=== PATIENT | female | born 1940 | race Caucasian/White ===

== ENCOUNTER 2018-10-20 18:39 | Inpatient (IN) | payer MEDICARE ==
[2018-10-20] MEDS ORDERED: SALINE 1 500ML.BAG with HEPARIN SODIUM,PORCINE/NS/PF 1,000 UNIT IV ONE (21:12)
[2018-10-20] MEDS ORDERED: HEPARIN SODIUM,PORCINE 5,000 UNIT/ML 1 ML VIAL IV PRN (21:17)
[2018-10-20] MEDS ORDERED: HEPARIN SODIUM,PORCINE 5,000 UNIT/ML 1 ML VIAL IV ONE (21:17)
[2018-10-20] MEDS ORDERED: NITROGLYCERIN OINT 1 INCH/GM PACKET TOPICAL PRN (21:21)
[2018-10-20] MEDS ORDERED: ACETAMINOPHEN TAB 325 MG TAB PO PRN (21:21)
[2018-10-20] MEDS ORDERED: HEPARIN SOD,PORK IN 0.45% NACL 25,000 UNIT in 0.45% NACL 1 250ML.BAG IV SCH (21:30)
[2018-10-20 22:28] LABS: Basophils # (A) 0.1 k/uL (0-0.2); Basophils % (A) 1 %; Eosinophils # (A) 0.1 k/uL (0-0.7); Eosinophils % (A) 1 %; HCT 34.5 % (34.0-46.0); HGB 11.5 gm/dL (11.4-16.0); Lymphocytes # (A) 1.2 k/uL (1.0-4.8); Lymphocytes % (A) 19 %; MCH 29.5 pg (25.0-35.0); MCHC 33.4 g/dL (31.0-37.0); MCV 88.4 fL (80.0-100.0); Mean Platelet Volume 7.2; Monocytes # (A) 0.5 k/uL (0-1.0); Monocytes % (A) 8 %; Neutrophils # (A) 4.4 k/uL (1.3-7.7); Neutrophils % (A) 69 %; Platelet Count 161 k/uL (150-450); RDW 13.6 % (11.5-15.5); WBC 6.4 k/uL (3.8-10.6)
[2018-10-20 22:34] LABS: INR 1.2 (<1.2); Partial Thromboplastin Time 28.5 sec (22.0-30.0); Prothrombin Time 12.5 sec (9.0-12.0)
[2018-10-20] MEDS: SODIUM CHLORIDE 0.9% 1,000 ML IV SCH (23:12)
[2018-10-21 01:10] VITALS: BMI 22.2
[2018-10-21 06:25] LABS: Glucose,Whole Blood 241 mg/dL (75-99)
[2018-10-21 06:51] LABS: Basophils % (A) 1 %; Eosinophils # (A) 0.1 k/uL (0-0.7); Eosinophils % (A) 1 %; HCT 36.6 % (34.0-46.0); HGB 12.2 gm/dL (11.4-16.0); Lymphocytes # (A) 0.9 k/uL (1.0-4.8); Lymphocytes % (A) 14 %; MCH 29.1 pg (25.0-35.0); MCHC 33.4 g/dL (31.0-37.0); MCV 87.1 fL (80.0-100.0); Mean Platelet Volume 7.4; Monocytes # (A) 0.3 k/uL (0-1.0); Monocytes % (A) 5 %; Neutrophils % (A) 78 %; Platelet Count 143 k/uL (150-450); RDW 14.2 % (11.5-15.5); WBC 6.4 k/uL (3.8-10.6)
[2018-10-21 07:05] LABS: Anion Gap 10 mmol/L; Blood Urea Nitrogen 10 mg/dL (7-17); Calcium 9.5 mg/dL (8.4-10.2); Carbon Dioxide 24 mmol/L (22-30); Chloride 108 mmol/L (98-107); Cholesterol 152 mg/dL (<200); Glucose 230 mg/dL (74-99); HDL Cholesterol 54 mg/dL (40-60); LDL Cholesterol,Calculated 57 mg/dL (0-99); Potassium 3.7 mmol/L (3.5-5.1); Sodium 142 mmol/L (137-145); Triglycerides 207 mg/dL (<150)
[2018-10-21] MEDS: INSULIN ASPART (NovoLOG) 100 UNIT/ML VIAL SQ SCH ×4 (07:21→20:27)
[2018-10-21] MEDS ORDERED: traMADol 50 MG TAB PO PRN (08:27)
[2018-10-21] MEDS ORDERED: ALPRAZolam 0.25 MG TAB PO PRN ×2 (08:27→10:09)
--- NOTE | 2018-10-21 08:43 | P.HPIM ---
History of Present Illness This is a pleasant 78 years old female with past medical history of coronary artery disease status post CABG, sick sinus syndrome status post pacemaker, paroxysmal atrial fibrillation on anticoagulation, mechanical valve replacement, diabetes mellitus, hypertension, hyperlipidemia, rheumatoid arthritis, cardiac valve replacement, she is a patient of Dr. KAY Arana. Was transferred from [facility], as per transfer papers patient presented to the hospital for vomiting and generalized abdominal pain and burning sensation that goes behind her sternum into her throat. With no diarrhea. No dizziness or lightheadedness. However patient reports with chest pain which is better controlled now. She has history of mitral valve replacements with mechanical valve, she is on Coumadin currently. Labs at [facility] showing hemoglobin 12.2, platelets 186 , WBC elevated at 15.2 INR 1.8, creatinine 0.8, AST 21, ALT 16. Glucose 133, sodium 138, potassium 4.0, and 16, bilirubin 0.7, troponin is 0.18. Urine analysis showing WBC of 6-10. Lactic acid elevated at 3.2. Coming down to 1.8. Radiology report of the abdominal and chest x-ray showing no acute process as per radiology report. CT abdomen and pelvis with contrast showing clearing of the right pleural effusion compared to old exam. No acute abnormality in the abdomen and pelvis. Mild colonic diverticulosis without diverticulitis. At [facility] patient was started on heparin drip, as well as Plavix and nitroglycerin Review of Systems CONSTITUTIONAL: No fever, no malaise, no fatigue. HEENT: No recent visual problems or hearing problems. Denied any sore throat. CARDIOVASCULAR: No orthopnea, PND, no palpitations, no syncope. PULMONARY: No shortness of breath, no cough, no hemoptysis. GASTROINTESTINAL: No diarrhea, no nausea, no vomiting, no abdominal pain. Normoactive bowel sounds. NEUROLOGICAL: No headaches, no weakness, no numbness. HEMATOLOGICAL: Denies any bleeding or petechiae. GENITOURINARY: Denies any burning micturition, frequency, or urgency. MUSCULOSKELETAL/RHEUMATOLOGICAL: Denies any joint pain, swelling, or any muscle pain. ENDOCRINE: Denies any polyuria or polydipsia. Past Medical History Past Medical History: Atrial Fibrillation, Coronary Artery Disease (CAD), Chest Pain / Angina, Heart Failure, Diabetes Mellitus, Eye Disorder, GERD/Reflux, Hyperlipidemia, Hypertension, Myocardial Infarction ([place]), Rheumatoid Arthritis ([place]) Last Myocardial Infarction Date:: UNKNOWN History of Any Multi-Drug Resistant Organisms: None Reported Past Surgical History: Adenoidectomy, Appendectomy, Cardiac Valve Replacement, Cholecystectomy, Coronary Bypass/CABG, Heart Catheterization, Pacemaker, Tonsillectomy Additional Past Surgical History / Comment(s): MITRAL VALVE REPAIR Past Anesthesia/Blood Transfusion Reactions: No Reported Reaction Type of Cardiac Device: Permanent Pacemaker Device Placement Date:: UNKNOWN Past Psychological History: Anxiety, Depression, Panic Disorder Additional Psychological History / Comment(s): PT. STATES SHE TAKES PROZAC FOR HER DEPRESSION Smoking Status: Never smoker Past Drug Use History: None Reported - Past Family History Father Family Medical History: Cancer Mother Family Medical History: Coronary Artery Disease (CAD), Myocardial Infarction ([place]) Medications and Allergies Home Medications Medication Instructions Recorded Confirmed Type ALPRAZolam [Xanax] 0.25 mg PO DAILY 10/20/18 10/20/18 History Atorvastatin Calcium [Lipitor] 20 mg PO DAILY 10/20/18 10/20/18 History Cetirizine HCl [Zyrtec] 10 mg PO DAILY 10/20/18 10/20/18 History Donepezil [Aricept] 10 mg PO DAILY 10/20/18 10/20/18 History Ergocalciferol [Vitamin D2 50,000 units PO DAILY 10/20/18 10/20/18 History (DRISDOL)] Esomeprazole Magnesium [NexIUM] 20 mg PO DAILY 10/20/18 10/20/18 History FLUoxetine HCL [PROzac] 10 mg PO DAILY 10/20/18 10/20/18 History Furosemide [Lasix] 40 mg PO DAILY 10/20/18 10/20/18 History Insulin Detemir [Levemir Flextouch] 42 units SQ HS 10/20/18 10/20/18 History Isosorbide Mononitrate [Isosorbide 30 mg PO DAILY 10/20/18 10/20/18 History Mononitrate ER] Lisinopril [Zestril] 2.5 mg PO DAILY 10/20/18 10/20/18 History Loratadine [Claritin] 10 mg PO DAILY 10/20/18 10/20/18 History Metoprolol Tartrate 25 mg PO BID 10/20/18 10/20/18 History Potassium Chloride [K-Tab ER] 10 meq PO DAILY 10/20/18 10/20/18 History Warfarin Sodium [Coumadin] 4 mg PO DAILY 10/20/18 10/20/18 History lamoTRIgine 100 mg PO DAILY 10/20/18 10/20/18 History metFORMIN HCL [Glucophage] 500 mg PO BID 10/20/18 10/20/18 History traMADol HCL [Ultram] 50 mg PO Q6HR PRN 10/20/18 10/20/18 History Allergies Allergy/AdvReac Type Severity Reaction Status Date / Time bee venom protein (honey bee) Allergy Anaphylaxis Verified 10/20/18 21:50 bismuth subsalicylate Allergy Unknown Verified 10/20/18 21:02 [From Pepto-Bismol] erythromycin base Allergy Unknown Verified 10/20/18 21:51 garrison Allergy Diarrhea Verified 10/20/18 21:59 Penicillins Allergy Unknown Verified 10/20/18 21:01 Sulfa (Sulfonamide Allergy Unknown Verified 10/20/18 21:02 Antibiotics) aspirin AdvReac Unknown Verified 10/20/18 21:52 Physical Exam Vitals: Vital Signs Temp Pulse Resp BP Pulse Ox 10/21/18 04:10 98.1 F 79 17 148/68 94 L 10/21/18 00:00 98.2 F 72 19 152/56 93 L 10/20/18 21:05 73 17 10/20/18 20:59 98.2 F 73 17 137/74 96 Intake and Output 10/20/18 10/21/18 10/21/18 22:59 06:59 14:59 Intake Total 53.765 Balance 53.765 Intake: Intake, IV Titration 53.765 Amount Heparin Sod,Pork in 0.45% 53.765 NaCl 25,000 unit In 0.45 % NaCl 1 250ml.bag @ 12 UNITS/KG/HR 6.624 mls/hr IV .Q24H [facility] Rx#: [id number] Other: Voiding Method Toilet Toilet # Voids 1 1 # Bowel Movements 1 Weight 55.2 kg 54.5 kg GENERAL: The patient is alert and oriented x3, not in any acute distress. Well developed, well nourished. HEENT: Pupils are round and equally reacting to light. EOMI. No scleral icterus. No conjunctival pallor. Normocephalic, atraumatic. No pharyngeal erythema. No thyromegaly. CARDIOVASCULAR: S1 and S2 present. No murmurs, rubs, or gallops. PULMONARY: Chest is clear to auscultation, no wheezing or crackles. ABDOMEN: Soft, nontender, nondistended, normoactive bowel sounds. No palpable organomegaly. MUSCULOSKELETAL: No joint swelling or deformity. EXTREMITIES: No cyanosis, clubbing, or pedal edema. NEUROLOGICAL: Gross neurological examination did not reveal any focal deficits. SKIN: No rashes. Results CBC & Chem 7: 10/21/18 06:00 10/21/18 06:00 Labs: Abnormal Lab Results - Last 24 Hours (Table) 10/20/18 10/20/18 10/21/18 Range/Units 22:03 22:03 03:43 Plt Count (150-450) k/uL Lymphocytes # (1.0-4.8) k/uL PT 12.5 H (9.0-12.0) sec INR 1.2 H (<1.2) APTT (22.0-30.0) sec Chloride (98-107) mmol/L Glucose (74-99) mg/dL POC Glucose (mg/dL) (75-99) mg/dL Troponin I 0.828 H* 0.590 H* (0.000-0.034) ng/mL Triglycerides (<150) mg/dL 10/21/18 10/21/18 10/21/18 Range/Units 06:00 06:00 06:00 Plt Count 143 L (150-450) k/uL Lymphocytes # 0.9 L (1.0-4.8) k/uL PT (9.0-12.0) sec INR (<1.2) APTT 39.7 H (22.0-30.0) sec Chloride 108 H (98-107) mmol/L Glucose 230 H (74-99) mg/dL POC Glucose (mg/dL) (75-99) mg/dL Troponin I (0.000-0.034) ng/mL Triglycerides 207 H (<150) mg/dL 10/21/18 Range/Units 06:24 Plt Count (150-450) k/uL Lymphocytes # (1.0-4.8) k/uL PT (9.0-12.0) sec INR (<1.2) APTT (22.0-30.0) sec Chloride (98-107) mmol/L Glucose (74-99) mg/dL POC Glucose (mg/dL) 241 H (75-99) mg/dL Troponin I (0.000-0.034) ng/mL Triglycerides (<150) mg/dL Thrombosis Risk Factor Assmnt - Choose All That Apply Any of the Below Risk Factors Present?: No Other Risk Factors: Yes Each Risk Factor Represents 3 Points: Age 75 years or older Other congenital or acquired thrombophilia - If yes, enter type in comment: No Thrombosis Risk Factor Assessment Total Risk Factor Score: 3 Thrombosis Risk Factor Assessment Level: Moderate Risk Assessment and Plan Assessment: Chest pain with mildly elevated troponin, rule out cardiac causes. Mostly non STEMI Mild gastroenteritis with nausea vomiting. History of coronary artery disease, status post CABG Paroxysmal atrial fibrillation, on Coumadin. Rate controlled History of valve replacements with mechanical valve. On Coumadin History of sick sinus syndrome, status post pacemaker Diabetes mellitus Hypertension Hyperlipidemia Rheumatoid arthritis Plan: This is a pleasant 78 years old female who presents because of chest pain. Follow-up troponins. Cardiology consult. Continue with aspirin.get records. Labs and medication were reviewed.. Continue same treatment. Continue with symptomatic treatment. Resume home medication. Monitor lytes and vitals. DVT and GI prophylaxis. Further recommendations of the clinical course of the patient DVT prophylaxis: heparin GI Prophylaxis: Pepcid Prognosis is guarded
[2018-10-21] MEDS: POTASSIUM CHLORIDE ER 10 MEQ TAB.ER.PRT PO SCH (08:57)
[2018-10-21] MEDS: LORATADINE 10 MG TAB PO SCH (08:57)
[2018-10-21] MEDS: METOPROLOL TARTRATE 25 MG TAB PO SCH ×2 (08:57→20:27)
[2018-10-21] MEDS: FAMOTIDINE 20 MG/2 ML VIAL IV SCH ×2 (08:57→20:27)
[2018-10-21] MEDS: LISINOPRIL 2.5 MG TAB PO SCH (08:57)
[2018-10-21] MEDS: FUROSEMIDE 40 MG TAB PO SCH (08:57)
[2018-10-21] MEDS: lamoTRIgine 100 MG TAB PO SCH (08:57)
[2018-10-21] MEDS: ATORVASTATIN 80 MG TAB PO SCH (08:57)
[2018-10-21] MEDS ORDERED: ASPIRIN 325 MG TAB PO SCH (09:00)
[2018-10-21] MEDS ORDERED: metFORMIN 500 MG TAB PO SCH (09:00)
[2018-10-21] MEDS ORDERED: NON-FORMULARY DRUG (Warfarin Sodium [Coumadin] 4 MG) PO SCH (09:00)
[2018-10-21] MEDS: FLUoxetine HCL 10 MG CAP PO SCH (09:02)
[2018-10-21] MEDS ORDERED: NITROGLYCERIN SL TABS 0.4 MG TAB SUBLINGUAL PRN (10:09)
[2018-10-21] MEDS ORDERED: SODIUM CHLORIDE 0.9% 1,000 ML in EMPTY BAG 1 BAG IV ONE (10:09)
[2018-10-21] MEDS ORDERED: ASPIRIN 325 MG TAB PO STA (10:09)
[2018-10-21] MEDS ORDERED: ATORVASTATIN 80 MG TAB PO STA (10:09)
[2018-10-21] MEDS ORDERED: ALPRAZolam 0.5 MG TAB PO PRN (10:09)
[2018-10-21] MEDS ORDERED: LIDOCAINE 1% INJ 10MG/ML (20 ML MDV) ONE (10:27)
--- NOTE | 2018-10-21 10:56 | ECHOF ---
Referral Reason:assess lvf MEASUREMENTS -------- HEIGHT: 157.5 cm WEIGHT: 54.4 kg BP: RVIDd: 1.9 cm (< 3.3) IVSd: 1.5 cm (0.6 - 1.1) LVIDd: 3.6 cm (3.9 - 5.3) LVPWd: 1.6 cm (0.6 - 1.1) IVSs: 2.0 cm LVIDs: 2.9 cm LVPWs: 2.7 cm LAESV Index (A-L): 63.61 ml/m Ao Diam: 3.0 cm (2.0 - 3.7) AV Cusp: 1.8 cm (1.5 - 2.6) LA Diam: 3.5 cm (2.7 - 3.8) MV E Jass: 1.38 m/s MV DecT: 191 ms MV A Jass: 0.83 m/s MV E/A Ratio: 1.66 AR PHT: 165 ms RAP: 5.00 mmHg RVSP: 43.10 mmHg FINDINGS -------- Sinus rhythm. This was a technically good study. The left ventricular size is normal. There is moderate concentric left ventricular hypertrophy. O verall left ventricular systolic function is mild-moderately impaired with, an EF between 40 - 45 %. Mid to basal inferiorlateral is hypokinetic The right ventricle is normal in size. LA is severely dilated >40 ml/m2 The right atrial size is normal. Interatrial and interventricular septum intact. Aortic valve is trileaflet and is mildly thickened. Trace amount of aortic regurgitation. The peak and mean MV gradients are 9.01mmHg 4.16mmHg as measured by doppler. Normally functioning b ioprosthetic mitral valve. Mild tricuspid regurgitation present. There is mild pulmonary hypertension. The right ventricular systolic pressure, as measured by Doppler, is 43.10mmHg. Trace/mild (physiologic) pulmonic regurgitation. The thrombus is located in the apical portion of the left ventricle. The aortic root size is normal. Normal inferior vena cava with normal inspiratory collapse consistent with estimated right atrial pre ssure of 5 mmHg. There is no pericardial effusion. CONCLUSIONS -------- 1. Sinus rhythm. 2. This was a technically good study. 3. The left ventricular size is normal. 4. There is moderate concentric left ventricular hypertrophy. 5. Overall left ventricular systolic function is mild-moderately impaired with, an EF between 40 - 45 %. 6. Mid to basal inferiorlateral is hypokinetic 7. The right ventricle is normal in size. 8. LA is severely dilated >40 ml/m2 9. The right atrial size is normal. 10. Interatrial and interventricular septum intact. 11. Aortic valve is trileaflet and is mildly thickened. 12. Trace amount of aortic regurgitation. 13. The peak and mean MV gradients are 9.01mmHg 4.16mmHg as measured by doppler. 14. Normally functioning bioprosthetic mitral valve. 15. Mild tricuspid regurgitation present. 16. There is mild pulmonary hypertension. 17. The right ventricular systolic pressure, as measured by Doppler, is 43.10mmHg. 18. Trace/mild (physiologic) pulmonic regurgitation. 19. The thrombus is located in the apical portion of the left ventricle. 20. The aortic root size is normal. 21. Normal inferior vena cava with normal inspiratory collapse consistent with estimated right atrial pressure of 5 mmHg. 22. There is no pericardial effusion. [employer] MARKER: Marilu Portillo RDCS
[2018-10-21] MEDS ORDERED: IV FLUID CONTINUATION 1,000 ML IV ONE (11:05)
[2018-10-21] MEDS ORDERED: MIDAZOLAM (PF) 2 MG/2 ML VIAL IVP ONE (11:09)
--- NOTE | 2018-10-21 11:11 | PN ---
PROGRESS NOTE Ofelia is a 78-year-old lady who is admitted to hospital with [id number] elevation PA. In my initial consultation, I stated that the patient had bypass surgery, however, I reviewed her records, she only had a mitral valve replacement and has a permanent pacemaker. Did not have bypass surgery. She had a cardiac catheterization in 2011 that revealed mild nonobstructive CAD. I will perform a cardiac catheterization on her for further evaluation. ARRON / IJN: [id number] /
[2018-10-21] MEDS ORDERED: LIDOCAINE 1% INJ 10MG/ML (20 ML MDV) SQ ONE (11:13)
[2018-10-21] MEDS ORDERED: IOPAMIDOL-370 100ML BTL INJ ONE (11:26)
[2018-10-21] MEDS ORDERED: RX INFO: IV CONTRAST WAS GIVEN 1 EACH MISC MISCELLANE PRN (11:36)
--- NOTE | 2018-10-21 11:53 | CONS ---
CONSULTATION CHIEF COMPLAINT: Chest pain. Ofelia is a 78-year-old lady with history of coronary artery disease, status post CABG, status post valve replacement, hypertension, diabetes, dyslipidemia, who is on chronic oral anticoagulation with a subtherapeutic anticoagulated. Comes in after having had a meal with her sister and developing recurrent bouts of nausea and vomiting and she also had episodes of chest discomfort with that. She describes it as chest pressure, precordial without definite radiation to neck, arm or back. She initially presented to [facility] and from there had been transferred to us because of elevated troponins. She has history of mechanical mitral valve. I do not have any records on her in terms of where the bypass surgery was done. A CT scan of the abdomen and pelvis are unremarkable. Chest x-ray was unremarkable too. She is currently on heparin drip, Plavix and nitro and tropes are elevated. I do not have any EKG in the system. Will obtain one. PAST MEDICAL HISTORY: Significant for coronary artery disease, status post CABG, paroxysmal atrial fibrillation. History of mechanical mitral valve, diabetes, hypertension, dyslipidemia. MEDICATIONS: At home include metoprolol 25 b.i.d., Zyrtec, Xanax, Ultram, Glucophage 500 b.i.d., Zestril 2.5 q. daily, Lipitor, Levemir, Imdur, Lasix, Prozac, Aricept, Drisdol, Coumadin and Plavix. Patient is allergic to BEE VENOM, PEPTO-BISMOL, ERYTHROMYCIN, PENICILLIN, SULFA, ASPIRIN and ALY. FAMILY HISTORY: Negative for premature coronary artery disease. SOCIAL HISTORY: Negative for current smoking, EtOH abuse, or drug abuse. REVIEW OF SYSTEMS: HEENT is unremarkable. CARDIAC: As described above. RESPIRATORY: Negative. GI: As described above. GENITOURINARY: Negative. ALLERGY/IMMUNOLOGY: Negative. MUSCULOSKELETAL: Significant for arthritis. PSYCHOSOCIAL: Negative. ENDOCRINE: Negative. DERM: Negative. CONSTITUTIONAL: Negative. ONCOLOGICAL: Negative. The rest of the system review is not relevant. PHYSICAL EXAMINATION: On exam, patient is afebrile. Heart rate is 80 beats per minute, blood pressure 148/68, O2 sat is 94% on room air. There is no jugular venous distention. Carotid upstroke is normal. There is no bruit. Chest exam reveals good air entry bilaterally. Heart exam reveals first and second heart sounds. Mechanical heart sound is clear. The abdomen is soft. Exam of the extremities did not reveal any edema. Peripheral pulses are felt. LABS: Show a hemoglobin of 12.2, platelet count is 140, potassium is 3.7, creatinine is 0.56. Trops are elevated at 0.8 and 0.5. LDL cholesterol is normal. ASSESSMENT: 1. Acute non ST-segment elevation myocardial infarction. 2. Coronary artery disease, status post coronary artery bypass grafting. 3. History of mechanical mitral valve. 4. Paroxysmal atrial fibrillation. 5. Hypertension. 6. Dyslipidemia. PLAN: I am going to review her outpatient records and consider cardiac catheterization on her. I will obtain a 2D echo to evaluate the mechanical valve. MMODL / MICHAN: [id number] /
[2018-10-21 12:04] LABS: Glucose,Whole Blood 204 mg/dL (75-99)
--- NOTE | 2018-10-21 12:11 | CC ---
CARDIAC CATHETERIZATION REPORT INDICATION: [id number] elevation VT. PROCEDURE NOTE: After obtaining informed consent, left heart catheterization and coronary angiogram are performed via the right femoral artery using standard Jordin catheters. Patient tolerated the procedure well without any obvious immediate complications. A femoral angiogram was performed. The patient has peripheral vascular disease and we opted for manual hemostasis. FINDINGS: 1. HEMODYNAMICS: Left ventricular end-diastolic pressure is 12 to 14 mm. There is no significant gradient across the aortic valve. 2. LEFT VENTRICULOGRAM: Left ventriculogram is not performed. 3. ANGIOGRAPHIC DATA: Left Main Coronary Artery: Left main coronary artery is a normal-sized vessel and is free of stenosis. Divides into left anterior descending coronary artery and circumflex coronary artery. LAD and its branches and circumflex coronary artery and its branches are free of significant stenosis. Right coronary artery is a large dominant vessel and shows mild atherosclerotic plaque in its midportion. CONCLUSION: 1. Mild nonobstructive coronary artery disease involving right coronary artery. 2. Troponin elevation is probably due to a type 2 myocardial infarction. PLAN: The patient's management is going to be with medical therapy. She needs to be anticoagulated properly for the mechanical valve. She received moderate conscious sedation. Total sedation time was 15 minutes. MMODL / IJN: [id number] /
[2018-10-21] MEDS: SODIUM CHLORIDE 0.9% 1,000 ML IV SCH ×2 (13:00→20:28)
[2018-10-21] MEDS ORDERED: HEPARIN SODIUM,PORCINE 5,000 UNIT/ML 1 ML VIAL IV ONE (16:45)
[2018-10-21] MEDS ORDERED: HEPARIN SODIUM,PORCINE 5,000 UNIT/ML 1 ML VIAL IV PRN (16:45)
[2018-10-21] MEDS ORDERED: HEPARIN SOD,PORK IN 0.45% NACL 25,000 UNIT in 0.45% NACL 1 250ML.BAG IV SCH (16:45)
[2018-10-21 17:03] LABS: Glucose,Whole Blood 234 mg/dL (75-99)
[2018-10-21 17:17] LABS: INR 1.1 (<1.2); Prothrombin Time 11.6 sec (9.0-12.0)
[2018-10-21] MEDS ORDERED: WARFARIN 10 MG TAB PO ONE (18:00)
[2018-10-21 20:23] LABS: Glucose,Whole Blood 254 mg/dL (75-99)
[2018-10-21] MEDS: DONEPEZIL 10 MG TAB PO SCH (20:27)
[2018-10-21] MEDS ORDERED: INSULIN DETEMIR (LEVEMIR) 100 UNIT/ML SYR SQ SCH (21:00)
[2018-10-22] MEDS: SODIUM CHLORIDE 0.9% 1,000 ML IV SCH ×4 (01:03→21:49)
[2018-10-22 06:00] LABS: Glucose,Whole Blood 160 mg/dL (75-99)
[2018-10-22] MEDS: INSULIN ASPART (NovoLOG) 100 UNIT/ML VIAL SQ SCH ×4 (06:20→21:09)
[2018-10-22 07:39] LABS: Anion Gap 6 mmol/L; Blood Urea Nitrogen 9 mg/dL (7-17); Calcium 9.3 mg/dL (8.4-10.2); Carbon Dioxide 25 mmol/L (22-30); Chloride 110 mmol/L (98-107); Glucose 162 mg/dL (74-99); Potassium 3.8 mmol/L (3.5-5.1); Sodium 141 mmol/L (137-145)
[2018-10-22 07:40] LABS: Basophils % (A) 0 %; Eosinophils # (A) 0.1 k/uL (0-0.7); Eosinophils % (A) 1 %; HCT 36.7 % (34.0-46.0); HGB 11.7 gm/dL (11.4-16.0); Lymphocytes # (A) 1.1 k/uL (1.0-4.8); Lymphocytes % (A) 14 %; MCH 28.6 pg (25.0-35.0); MCHC 31.8 g/dL (31.0-37.0); MCV 90.1 fL (80.0-100.0); Mean Platelet Volume 7.2; Monocytes # (A) 0.5 k/uL (0-1.0); Monocytes % (A) 6 %; Neutrophils # (A) 6.4 k/uL (1.3-7.7); Neutrophils % (A) 78 %; Platelet Count 152 k/uL (150-450); RBC 4.07 m/uL (3.80-5.40); RDW 13.6 % (11.5-15.5); WBC 8.2 k/uL (3.8-10.6)
[2018-10-22] MEDS: lamoTRIgine 100 MG TAB PO SCH (08:47)
[2018-10-22] MEDS: LORATADINE 10 MG TAB PO SCH (08:47)
[2018-10-22] MEDS: FLUoxetine HCL 10 MG CAP PO SCH (08:47)
[2018-10-22] MEDS: DONEPEZIL 10 MG TAB PO SCH (08:48)
[2018-10-22] MEDS: METOPROLOL TARTRATE 25 MG TAB PO SCH ×2 (08:48→21:09)
[2018-10-22] MEDS: FAMOTIDINE 20 MG/2 ML VIAL IV SCH (08:48)
[2018-10-22] MEDS: POTASSIUM CHLORIDE ER 10 MEQ TAB.ER.PRT PO SCH (08:48)
[2018-10-22] MEDS: FUROSEMIDE 40 MG TAB PO SCH (08:48)
[2018-10-22] MEDS: ATORVASTATIN 80 MG TAB PO SCH (08:48)
[2018-10-22] MEDS: LISINOPRIL 2.5 MG TAB PO SCH (08:48)
[2018-10-22] MEDS: ENOXAPARIN 60 MG/0.6 ML SYRINGE SQ SCH ×2 (12:15→21:09)
[2018-10-22 12:16] LABS: Glucose,Whole Blood 347 mg/dL (75-99)
--- NOTE | 2018-10-22 12:54 | P.PN ---
Subjective This is a pleasant 78 years old female with past medical history of coronary artery disease status post CABG, sick sinus syndrome status post pacemaker, paroxysmal atrial fibrillation on anticoagulation, mechanical valve replacement, diabetes mellitus, hypertension, hyperlipidemia, rheumatoid arthritis, cardiac valve replacement, she is a patient of Dr. KAY Arana. Was transferred from [facility], as per transfer papers patient presented to the hospital for vomiting and generalized abdominal pain and burning sensation that goes behind her sternum into her throat. With no diarrhea. No dizziness or lightheadedness. However patient reports with chest pain which is better controlled now. She has history of mitral valve replacements with mechanical valve, she is on Coumadin currently. Labs at [facility] showing hemoglobin 12.2, platelets 186 , WBC elevated at 15.2 INR 1.8, creatinine 0.8, AST 21, ALT 16. Glucose 133, sodium 138, potassium 4.0, and 16, bilirubin 0.7, troponin is 0.18. Urine analysis sh owing WBC of 6-10. Lactic acid elevated at 3.2. Coming down to 1.8. Radiology report of the abdominal and chest x-ray showing no acute process as per radiology report. CT abdomen and pelvis with contrast showing clearing of the right pleural effusion compared to old exam. No acute abnormality in the abdomen and pelvis. Mild colonic diverticulosis without diverticulitis. At [facility] patient was started on heparin drip, as well as Plavix and nitroglycerin 10/22/2018 Patient feels better today, her chest pain or dyspnea are improving. She has negative cardiac catheter yesterday. She has mechanical heart valve and her INR should be around 3 as per cardiology recommendation. Case was discussed with cardiology team and their input is appreciated. Patient was started on Lovenox for bridging. Continue with Coumadin. Monitor INR. Glucose is elevated and controlled her creatinine 0.6. We'll increase her Levemir from 42 up to 45 units for uncontrolled sugar. She is currently on Levemir 45 units and metformin 500 mg twice a day. 1 dose of Levemir 5 units provided today. Also we'll check chest x-ray, and ask physical therapy to evaluate the patient's Review of systems CONSTITUTIONAL: No fever, no malaise, no fatigue. HEENT: No recent visual problems or hearing problems. Denied any sore throat. CARDIOVASCULAR: No orthopnea, PND, no palpitations, no syncope. PULMONARY: No shortness of breath, no cough, no hemoptysis. GASTROINTESTINAL: No diarrhea, no nausea, no vomiting, no abdominal pain. Normoactive bowel sounds. NEUROLOGICAL: No headaches, no weakness, no numbness. HEMATOLOGICAL: Denies any bleeding or petechiae. GENITOURINARY: Denies any burning micturition, frequency, or urgency. MUSCULOSKELETAL/RHEUMATOLOGICAL: Denies any joint pain, swelling, or any muscle pain. ENDOCRINE: Denies any polyuria or polydipsia. Medication: Tylenol, Xanax, Lipitor, Aricept, Lovenox, vitamin D, Pepcid, Prozac, Lasix, NovoLog, Levemir insulin, Lamictal, lisinopril, Claritin, metformin, Lopressor, potassium chloride, sodium chloride fluids, Ultram, warfarin/Coumadin Objective - Vital Signs Vital signs: Vital Signs Temp 97.3 F L 10/22/18 08:00 Pulse 78 10/22/18 08:00 Resp 18 10/22/18 08:00 BP 162/68 10/22/18 08:00 Pulse Ox 97 10/22/18 08:00 Intake & Output 10/21/18 10/22/18 10/22/18 18:59 06:59 18:59 Intake Total 488.765 703.927 189.56 Output Total 900 250 Balance -411.235 453.927 189.56 Weight 54.3 kg Intake: IV 75 Intake, IV Titration 53.765 43.927 69.56 Amount Heparin Sod,Pork in 0.45% 43.927 69.56 NaCl 25,000 unit In 0.45 % NaCl 1 250ml.bag @ 12 UNITS/KG/HR 6.54 mls/hr IV .Q24H [facility] Rx#: [id number] Heparin Sod,Pork in 0.45% 53.765 NaCl 25,000 unit In 0.45 % NaCl 1 250ml.bag @ 12 UNITS/KG/HR 6.624 mls/hr IV .Q24H [facility] Rx#: [id number] Oral 360 660 120 Output: Urine 900 250 Other: Voiding Method Toilet Toilet # Bowel Movements 1 1 - Exam GENERAL: The patient is alert and oriented x3, not in any acute distress. Well developed, well nourished. HEENT: Pupils are round and equally reacting to light. EOMI. No scleral icterus. No conjunctival pallor. Normocephalic, atraumatic. No pharyngeal erythema. No thyromegaly. CARDIOVASCULAR: S1 and S2 present. No murmurs, rubs, or gallops. PULMONARY: Chest is clear to auscultation, no wheezing or crackles. ABDOMEN: Soft, nontender, nondistended, normoactive bowel sounds. No palpable organomegaly. MUSCULOSKELETAL: No joint swelling or deformity. EXTREMITIES: No cyanosis, clubbing, or pedal edema. NEUROLOGICAL: Gross neurological examination did not reveal any focal deficits. SKIN: No rashes. - Labs CBC & Chem 7: 10/22/18 06:50 10/22/18 06:50 Labs: Abnormal Lab Results - Last 24 Hours (Table) 10/21/18 10/21/18 10/21/18 Range/Units 16:51 20:19 22:47 APTT 40.3 H (22.0-30.0) sec Chloride (98-107) mmol/L Glucose (74-99) mg/dL POC Glucose (mg/dL) 234 H 254 H (75-99) mg/dL 10/22/18 10/22/18 10/22/18 Range/Units 05:56 06:50 06:50 APTT 38.5 H (22.0-30.0) sec Chloride 110 H (98-107) mmol/L Glucose 162 H (74-99) mg/dL POC Glucose (mg/dL) 160 H (75-99) mg/dL 10/22/18 Range/Units 12:07 APTT (22.0-30.0) sec Chloride (98-107) mmol/L Glucose (74-99) mg/dL POC Glucose (mg/dL) 347 H (75-99) mg/dL Assessment and Plan Assessment: Chest pain with mildly elevated troponin, abnormal cardiac cath. Mild gastroenteritis with nausea vomiting. Improved Diabetes mellitus, with uncontrolled sugar History of coronary artery disease, status post CABG Paroxysmal atrial fibrillation, on Coumadin. Rate controlled History of mitral valve replacements with mechanical valve. On Coumadin History of sick sinus syndrome, status post pacemaker Hypertension Hyperlipidemia Rheumatoid arthritis Plan: This is a pleasant 78 years old female who presents because of chest pain. Follow-up troponins. Cardiology consult. Continue with aspirin.get records. Labs and medication were reviewed.. Continue same treatment. Continue with symptomatic treatment. Resume home medication. Monitor lytes and vitals. DVT and GI prophylaxis. Further recommendations of the clinical course of the patient DVT prophylaxis: heparin GI Prophylaxis: Pepcid Prognosis is guarded
[2018-10-22] MEDS ORDERED: INSULIN DETEMIR (LEVEMIR) 100 UNIT/ML SYR SQ ONE ×2 (13:00→22:07)
--- NOTE | 2018-10-22 13:23 | P.PN ---
Subjective Progress Note Date: 10/22/18 This is a 78-year-old female with known history of coronary artery disease and prior bypass surgery, she also underwent metallic valve replacement surgery, hypertension, diabetes, hyperlipidemia, presented to the hospital with symptoms of nausea and vomiting, she also had associated chest discomfort. Patient was taken to the cardiac catheterization lab she was found to have mild nonobstructive coronary artery disease involving the right coronary artery. She did have some mild troponin abnormality, likely secondary to a type II myocardial infarction. The patient was seen and examined this morning, feeling well, denied any chest discomfort, no nausea, no shortness of breath. Right groin is soft, no evidence of any hematoma. Blood pressure 136/68, heart rate in the 60s, 96% on room air. White blood cell count 8.2, hemoglobin 11.7, platelet count 152. Sodium 141, potassium 3.8, BUN 9 and creatinine 0.64, INR today has not been obtained. Most recent INR which was performed yesterday was 1.1. Patient did receive 10 mg of Coumadin yesterday and is scheduled to received 10 mg of Coumadin today. We will also give her an additional 10 tomorrow, 5 mg on Friday, then recommend PT/INR check on Friday. She will go home with Lovenox 60 mg subcu twice a day for 4 days. The goal is to maintain an INR around 3.0. Objective - Vital Signs Vital signs: Vital Signs Temp 97.3 F L 10/22/18 08:00 Pulse 78 10/22/18 08:00 Resp 18 10/22/18 08:00 BP 162/68 10/22/18 08:00 Pulse Ox 97 10/22/18 08:00 Intake & Output 10/21/18 10/22/18 10/22/18 18:59 06:59 18:59 Intake Total 488.765 703.927 189.56 Output Total 900 250 Balance -411.235 453.927 189.56 Weight 54.3 kg Intake: IV 75 Intake, IV Titration 53.765 43.927 69.56 Amount Heparin Sod,Pork in 0.45% 43.927 69.56 NaCl 25,000 unit In 0.45 % NaCl 1 250ml.bag @ 12 UNITS/KG/HR 6.54 mls/hr IV .Q24H [facility] Rx#: [id number] Heparin Sod,Pork in 0.45% 53.765 NaCl 25,000 unit In 0.45 % NaCl 1 250ml.bag @ 12 UNITS/KG/HR 6.624 mls/hr IV .Q24H [facility] Rx#: [id number] Oral 360 660 120 Output: Urine 900 250 Other: Voiding Method Toilet Toilet # Bowel Movements 1 1 - Exam PHYSICAL EXAMINATION: GENERAL: 78-year-old female in no acute distress at the time of my examination HEENT: Head is atraumatic, normocephalic. Pupils equal, round. Sclera anicteric. Conjunctiva are clear. Mucous membranes of the mouth are moist. Neck is supple. There is no elevated jugular venous pressure. No carotid bruit is heard. HEART EXAMINATION: Heart S1-S2 metallic valve click well heard. CHEST EXAMINATION: Lungs are clear to auscultation and precussion. No chest wall tenderness is noted on palpation or with deep breathing. ABDOMEN: Soft, nontender. Bowel sounds are heard. No organomegaly noted. EXTREMITIES: 2+ peripheral pulses with no evidence of peripheral edema and no calf tenderness noted. Right groin soft, no evidence of any hematoma. NEUROLOGIC patient is awake, alert and oriented 3 . . - Labs CBC & Chem 7: 10/22/18 06:50 10/22/18 06:50 Labs: Abnormal Lab Results - Last 24 Hours (Table) 10/21/18 10/21/18 10/21/18 Range/Units 16:51 20:19 22:47 APTT 40.3 H (22.0-30.0) sec Chloride (98-107) mmol/L Glucose (74-99) mg/dL POC Glucose (mg/dL) 234 H 254 H (75-99) mg/dL 10/22/18 10/22/18 10/22/18 Range/Units 05:56 06:50 06:50 APTT 38.5 H (22.0-30.0) sec Chloride 110 H (98-107) mmol/L Glucose 162 H (74-99) mg/dL POC Glucose (mg/dL) 160 H (75-99) mg/dL 10/22/18 Range/Units 12:07 APTT (22.0-30.0) sec Chloride (98-107) mmol/L Glucose (74-99) mg/dL POC Glucose (mg/dL) 347 H (75-99) mg/dL Assessment and Plan Plan: Assessment and plan #1 Chest discomfort with abnormality in troponin likely representing a type II myocardial infarction. Cardiac catheterization was performed which do not reveal any significant obstructive coronary artery disease. #2 coronary artery disease with prior bypass surgery #3 history of mechanical mitral valve replacement #4 diabetes #5 hypertension #6 hyperlipidemia Plan From cardiology's perspective, patient may be able to be discharged home today. We will give her 10 mg of Coumadin today and again tomorrow, Friday patient will receive 5 mg of Coumadin then go back on her home dose of 4 mg daily. PT/INR will be drawn on Friday. She will also go home with Lovenox 60 mg subcu twice a day for 4 days. Follow-up in the office post discharge. DNP note has been reviewed, I agree with a documented findings and plan of care. Patient was seen and examined.
[2018-10-22 14:04] LABS: INR 1.7 (<1.2); Prothrombin Time 16.8 sec (9.0-12.0)
--- NOTE | 2018-10-22 14:19 | CDI ---
Documentation Clarification Form Date: 10/22/2018 2:09:53 PM From: Sri Lopez CCS, CCDS Admit Date: 10/22/2018 9:26:00 AM Patient Name: Ofelia Llanes Visit Number: [id number] Discharge Date: ATTENTION: The Clinical Documentation Specialists (CDI) and [facility] Coding Staff appreciate your assistance in clarifying documentation. Please respond to the clarification below the line at the bottom and electronically sign. The CDI & [facility] Coding staff will review the response and follow-up if needed. Please note: Queries are made part of the Legal Health Record. If you have any questions, please contact the author of this message via ITS. Dr. Law Sheet: Per the 10/22 progress note: "Diabetes mellitus, with uncontrolled sugar. History/Risk Factors: DM II, CAD w/CABG & MVR, Paroxysmal Atrial fibrillation, SSS w/pacemaker, Hypertension, Hyperlipidemia & RA. Clinical Indicators: Transferred from another facility for vomiting & generalized abdominal pain with burning sensation behind her sternum. LAB: Glucose 230^, 162^ Treatment: Left heart catheterization, IV Heparin drip, Nitropaste, Insulin sq. In order to capture the severity of Illness and necessary documentation specificity, please clarify: DM Type 2: o With Hyperglycemia o Without Hyperglycemia Other, please specify: Unable to determine (Last Revision: March 2017) With Hyperglycemia MTDD
--- NOTE | 2018-10-22 15:11 | XR ---
EXAMINATION TYPE: XR chest 1V DATE OF EXAM: 10/22/2018 COMPARISON: Prior chest x-ray 09/24/2012 HISTORY: Dyspnea TECHNIQUE: Single frontal view of the chest is obtained. FINDINGS: Patient is rotated. Patient is post median sternotomy. Patient is post mitral valve replac ement. Pacemaker is present with the lead in the right ventricle. No pneumothorax or pleural effusion . Heart is enlarged. No evident airspace disease. Prominent lung volume may be indicative of underlyi ng COPD. IMPRESSION: No acute process.
[2018-10-22 17:10] LABS: Glucose,Whole Blood 247 mg/dL (75-99)
[2018-10-22] MEDS ORDERED: WARFARIN 10 MG TAB PO ONE (18:00)
[2018-10-22 20:02] LABS: Glucose,Whole Blood 267 mg/dL (75-99)
[2018-10-22] MEDS ORDERED: INSULIN DETEMIR (LEVEMIR) 100 UNIT/ML SYR SQ SCH (21:00)
[2018-10-22] MEDS: FAMOTIDINE 20 MG TAB PO SCH (21:09)
[2018-10-22] MEDS ORDERED: metFORMIN 500 MG TAB PO STA (22:05)
[2018-10-22 22:36] LABS: Glucose,Whole Blood 272 mg/dL (75-99)
[2018-10-22] MEDS: amLODIPine 5 MG TAB PO SCH (22:44)
[2018-10-22 23:23] VITALS: RESP 16
[2018-10-23 03:58] LABS: Hemoglobin A1C 7.2 % (4.0-6.0)
[2018-10-23 07:16] LABS: Glucose,Whole Blood 123 mg/dL (75-99)
[2018-10-23] MEDS: INSULIN ASPART (NovoLOG) 100 UNIT/ML VIAL SQ SCH ×2 (07:21→12:08)
[2018-10-23] MEDS: FAMOTIDINE 20 MG TAB PO SCH (08:01)
[2018-10-23] MEDS: METOPROLOL TARTRATE 25 MG TAB PO SCH (08:01)
[2018-10-23] MEDS: POTASSIUM CHLORIDE ER 10 MEQ TAB.ER.PRT PO SCH (08:01)
[2018-10-23] MEDS: ATORVASTATIN 80 MG TAB PO SCH (08:01)
[2018-10-23] MEDS: FUROSEMIDE 40 MG TAB PO SCH (08:01)
[2018-10-23] MEDS: LORATADINE 10 MG TAB PO SCH (08:01)
[2018-10-23] MEDS: amLODIPine 5 MG TAB PO SCH (08:01)
[2018-10-23] MEDS: LISINOPRIL 2.5 MG TAB PO SCH (08:01)
[2018-10-23 10:27] LABS: INR 1.6 (<1.2); Prothrombin Time 16.3 sec (9.0-12.0)
[2018-10-23 10:32] LABS: Anion Gap 10 mmol/L; Blood Urea Nitrogen 11 mg/dL (7-17); Calcium 9.2 mg/dL (8.4-10.2); Carbon Dioxide 21 mmol/L (22-30); Chloride 106 mmol/L (98-107); Glucose 192 mg/dL (74-99); Potassium 3.7 mmol/L (3.5-5.1); Sodium 137 mmol/L (137-145)
[2018-10-23 11:51] LABS: Glucose,Whole Blood 187 mg/dL (75-99)
[2018-10-23] MEDS: DONEPEZIL 10 MG TAB PO SCH (12:08)
[2018-10-23] MEDS: lamoTRIgine 100 MG TAB PO SCH (12:08)
[2018-10-23] MEDS: ENOXAPARIN 60 MG/0.6 ML SYRINGE SQ SCH (12:08)
[2018-10-23] MEDS: FLUoxetine HCL 10 MG CAP PO SCH (12:08)
[2018-10-23 12:48] VITALS: BP 125/71; PULSE 52; TEMP 98
--- NOTE | 2018-10-23 17:16 | P.DS ---
Providers Date of admission: 10/22/18 09:26 Attending physician: Javy Pang Consults: 10/20/18 21:05 Consult Physician Routine Consulting Provider: Alfonso Box Consult Reason/Comments: NSTEMI Do you want consulting provider notified?: Yes, Notify in am Placement Type Exists?: Yes Primary care physician: Sumit Mauro, DO Hospital Course: diagnoses: Chest pain with mildly elevated troponin, with normal cardiac cath. Mild gastroenteritis with nausea vomiting. Improved Diabetes mellitus, with uncontrolled sugar. Medication are adjusted History of mitral valve replacements with mechanical valve. On Coumadin with subtherapeutic INR Paroxysmal atrial fibrillation, on Coumadin. Rate controlled History of coronary artery disease, status post CABG History of sick sinus syndrome, status post pacemaker Hypertension Hyperlipidemia Rheumatoid arthritis Hospital course This is a pleasant 78 years old female who presents with chest pain and dyspnea that are completely resolved upon discharge. Patient during the hospital course has been evaluated by cardiology team and she underwent cardiac cath which was negative for significant disease. Marketing Services Specialist recommended only conservative measures. She is also on atrial fibrillation on anticoagulation ,Also patient is a known history of mitral valve replaced which is mechanical and she is on Coumadin with target INR of 3 as per cardiology recommendation. However her INR was subtherapeutic at 1.6 and 1.7. Lovenox bridging is a provided. Higher doses is given temporarily over 3 days for the patient patient shall be given coumadine 10 mg daily for 3 days and then she will back to her usual days of 4 mg daily. During this time she will be covered with Lovenox injections 60 mg twice a day. And she has an appointment with her PCP on this coming 10/26/2018 at 3:30 PM with her PCP Dr. Mauro, for check her INR. I called Dr. Mauro and discussed with him the case above with all the recommendation and he kindly took note of this that he will check her INR and he will address her anticoagulation therapy. Also I did him about the adjustment we made for her diabetes and blood pressure medication. We'll increase her Levemir insulin from 42 units of 250 units, and metformin from 500-1000 mg twice a day Carla today her glucose is better controlled. Norvasc 2.5 mg is added to better control her blood pressure. Patient's symptoms are completely resolved including chest pain or dyspnea. Patient does not have any more symptoms. Problems and management plans was discussed in details more than once with the p atient and family at bedside including the daughter Miss Jain and the sister at bedside and patient and family verbalized understanding and acceptance Problems was found stable and can be discharged in regards prognosis however she needs follow-up as an outpatient. Patient agrees with the appointments made for her with her PCP and internal medicine doctor and stated she will follow-up. Gen: patient is a AAOx3, no distress CVS: S1-S2, RRR, no murmur Lungs: B/L CTA, no wheezing Abdomen: soft, no distention, no tenderness, positive bowel sounds Extremity: no leg edema or induration Time spent more than 35 minutes Plan - Discharge Summary Discharge Rx Participant: No New Discharge Prescriptions: New Warfarin [Coumadin] 6 mg PO DAILY 3 Days #6 tab Insulin Detemir (Levemir) [Levemir] 50 unit SQ HS #1 vial Enoxaparin [Lovenox] 60 mg SQ Q12HR #10 syringe amLODIPine BESYLATE [Norvasc] 2.5 mg PO DAILY #30 tab Continue Donepezil [Aricept] 10 mg PO HS Loratadine [Claritin] 10 mg PO DAILY Ergocalciferol [Vitamin D2 (DRISDOL)] 50,000 units PO QMONTH Isosorbide Mononitrate [Isosorbide Mononitrate ER] 30 mg PO DAILY Furosemide [Lasix] 40 mg PO DAILY FLUoxetine HCL [PROzac] 10 mg PO DAILY ALPRAZolam [Xanax] 0.25 mg PO DAILY PRN PRN Reason: Anxiety traMADol HCL [Ultram] 50 mg PO Q8H PRN PRN Reason: Pain Potassium Chloride [K-Tab ER] 10 meq PO DAILY Metoprolol Tartrate 25 mg PO BID Lisinopril [Zestril] 2.5 mg PO DAILY Atorvastatin Calcium [Lipitor] 20 mg PO DAILY Esomeprazole Magnesium [NexIUM] 40 mg PO DAILY Insulin Aspart [NovoLOG Flexpen] See Protocol SQ AC-TID lamoTRIgine [LaMICtal] 100 mg PO DAILY metFORMIN HCL 1,000 mg PO AC-BID #60 tablet Warfarin Sodium [Coumadin] 4 mg PO DAILY #30 tablet Discontinued Insulin Detemir [Levemir Flextouch] 42 units SQ HS Cetirizine HCl [Zyrtec] 10 mg PO DAILY Discharge Medication List ALPRAZolam [Xanax] 0.25 mg PO DAILY PRN 10/20/18 [History] Atorvastatin Calcium [Lipitor] 20 mg PO DAILY 10/20/18 [History] Donepezil [Aricept] 10 mg PO HS 10/20/18 [History] Ergocalciferol [Vitamin D2 (DRISDOL)] 50,000 units PO QMONTH 10/20/18 [History] FLUoxetine HCL [PROzac] 10 mg PO DAILY 10/20/18 [History] Furosemide [Lasix] 40 mg PO DAILY 10/20/18 [History] Isosorbide Mononitrate [Isosorbide Mononitrate ER] 30 mg PO DAILY 10/20/18 [History] Lisinopril [Zestril] 2.5 mg PO DAILY 10/20/18 [History] Loratadine [Claritin] 10 mg PO DAILY 10/20/18 [History] Metoprolol Tartrate 25 mg PO BID 10/20/18 [History] Potassium Chloride [K-Tab ER] 10 meq PO DAILY 10/20/18 [History] traMADol HCL [Ultram] 50 mg PO Q8H PRN 10/20/18 [History] Esomeprazole Magnesium [NexIUM] 40 mg PO DAILY 10/22/18 [History] Insulin Aspart [NovoLOG Flexpen] See Protocol SQ AC-TID 10/22/18 [History] lamoTRIgine [LaMICtal] 100 mg PO DAILY 10/22/18 [History] Enoxaparin [Lovenox] 60 mg SQ Q12HR #10 syringe 10/23/18 [Rx] Insulin Detemir (Levemir) [Levemir] 50 unit SQ HS #1 vial 10/23/18 [Rx] Warfarin Sodium [Coumadin] 4 mg PO DAILY #30 tablet 10/23/18 [Rx] Warfarin [Coumadin] 6 mg PO DAILY 3 Days #6 tab 10/23/18 [Rx] amLODIPine BESYLATE [Norvasc] 2.5 mg PO DAILY #30 tab 10/23/18 [Rx] metFORMIN HCL 1,000 mg PO AC-BID #60 tablet 10/23/18 [Rx] Follow up Appointment(s)/Referral(s): [facility] [NON-STAFF] - Sumit Mauro DO [Primary Care Provider] - 10/26/18 3:30 pm (Friday) Alfonso Box MD [STAFF PHYSICIAN] - 10/29/18 12:45 pm Patient Instructions/Handouts: *Surgery [facility] - After Heart Catheterization - Human Resource Management Instructor Instructions, Left Heart Catheterization (DC) Activity/Diet/Wound Care/Special Instructions: Lovenox script filled in [facility] - copay is $1.25 Care Plan Goals (MU): cardiac diet activity is limited till you see your doctor take coumadin 10 mg (4 mg + 6 mg) for 3 days , then continue with 4 mg daily ( from Friday10/26/2018) take lovenox 60 mg bid till you see doctor Dr. Soriano ( go and check your INR on Friday with ) your target INR is around 3.0 , because of your mechanical heart valve and atrial fibrillation please check your sugar 4 times per day. before each meal and at bed time , keep it in a log book and take it to your doctor on your appointment date Discharge Disposition: HOME WITH HOME HEALTH SERVICES
[2018-10-23] MEDS ORDERED: metFORMIN 500 MG TAB PO SCH (17:30)
[2018-10-23] MEDS ORDERED: WARFARIN 10 MG TAB PO ONE (18:00)
[2018-10-23] MEDS ORDERED: INSULIN DETEMIR (LEVEMIR) 100 UNIT/ML SYR SQ SCH (21:00)
[2018-10-24] MEDS ORDERED: metFORMIN 500 MG TAB PO SCH (17:30)
[2018-10-24] MEDS ORDERED: WARFARIN 5 MG TAB PO ONE (18:00)
--- NOTE | 2018-10-26 12:45 | CDI ---
Documentation Clarification Form Date: 10/26/18 From: Susy Dick Phone: If questions call Yadi Trevizo @ [phone], Hours-8:30 am & 5 pm MMarc Calvo Admit Date: 10/22/2018 9:26:00 AM Patient Name: Ofelia Llanes Visit Number: [id number] Discharge Date: 10/23/2018 2:36:00 PM ATTENTION: The Clinical Documentation Specialists (CDI) and [facility] Coding Staff appreciate your assistance in clarifying documentation. Please respond to the clarification below the line at the bottom and electronically sign. The CDI & [facility] Coding staff will review the response and follow-up if needed. Please note: Queries are made part of the Legal Health Record. If you have any questions, please contact the author of this message via ITS. Dr. Thanh Velez Heart failure is documented in the [facility] under past medical history. History/Risk Factors: Type 2 MD, paroxysmal A fib, nonobstructive CAD, s/p pacemaker, s/p prosthetic heart valve VS/Pulse OX: T-97.9, P-71, R-16, O2 sat-100 (RA) BNP: none Echocardiogram Results: left ventricular systolic function is mild-moderately impaired w EF between 40-45% Chest X Ray: Heart is enlarged. No acute process. Treatment: Lasix 40 mg po daily In your professional opinion, can you please clarify the acuity and type of CHF if known? Systolic Heart Failure Diastolic Heart Failure Systolic & Diastolic Heart Failure Acute Chronic Acute on Chronic Heart Failure Unable to Determine Other, please specify Unable to Determine MTDD
[2018-10-28] MEDS ORDERED: ERGOCALCIFEROL 50,000 UNIT CAP PO SCH (09:00)
== END 2018-10-23 14:36 | disposition home health service (06) | DRG 282 ==
LOC: 3SCARD 20:50 → INTOOBSV 20:50 → OBSVTOIN 10-22 09:26 → 3NMEDONC 10-22 23:39
PROVIDERS: ADMIT Internal Medicine; ATTEND Internal Medicine
PROC: B2111ZZ Fluoroscopy of Multiple Coronary Arteries using Low Osmolar Contrast (ICD-10-PCS; 2018-10-21)
PROC: 4A023N7 Measurement of Cardiac Sampling and Pressure, Left Heart, Percutaneous Approach (ICD-10-PCS; principal; 2018-10-21 11:00)
DX: I21.A1 Myocardial infarction type 2 (principal); E11.51 Type 2 diabetes mellitus with diabetic peripheral angiopathy without gangrene; E11.65 Type 2 diabetes mellitus with hyperglycemia; I11.0 Hypertensive heart disease with heart failure; I49.5 Sick sinus syndrome; I50.9 Heart failure, unspecified; I48.0 Paroxysmal atrial fibrillation; M06.9 Rheumatoid arthritis, unspecified; I25.2 Old myocardial infarction; K21.9 Gastro-esophageal reflux disease without esophagitis; F32.9 Major depressive disorder, single episode, unspecified; F41.0 Panic disorder [episodic paroxysmal anxiety]; E78.5 Hyperlipidemia, unspecified; K57.30 Diverticulosis of large intestine without perforation or abscess without bleeding; K52.9 Noninfective gastroenteritis and colitis, unspecified; I25.10 Atherosclerotic heart disease of native coronary artery without angina pectoris; Z79.4 Long term (current) use of insulin; Z79.01 Long term (current) use of anticoagulants; Z79.899 Other long term (current) drug therapy; Z95.2 Presence of prosthetic heart valve; Z90.49 Acquired absence of other specified parts of digestive tract; Z95.0 Presence of cardiac pacemaker; Z98.890 Other specified postprocedural states; Z88.1 Allergy status to other antibiotic agents; Z91.030 Bee allergy status; Z88.0 Allergy status to penicillin; Z88.2 Allergy status to sulfonamides; Z88.8 Allergy status to other drugs, medicaments and biological substances; Z91.018 Allergy to other foods; Z82.49 Family history of ischemic heart disease and other diseases of the circulatory system
CPT/HCPCS: 71045; 80048; 80061; 83036; 84484; 85025; 85610; 85730; 93306; 93458; 94760